=== PATIENT | female | born 1995 | race Two or more races ===

== ENCOUNTER 2019-09-05 19:52 | Emergency (ER) | payer SELFPAY ==
[~2019-09-05] VITALS: Ht 162.6 cm; Wt 77.1 kg
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
--- NOTE | 2019-09-05 20:19 | NUR ---
PT BROUGHT TO XRAY.
--- NOTE | 2019-09-05 20:33 | NUR ---
PT BROUGHT BACK FROM XRAY.
[2019-09-05 21:01] VITALS: BP 124/86
--- NOTE | 2019-09-05 21:01 | NUR ---
Patient discharged to home in stable condition. Written and verbal after care instructions given. Patient verbalizes understanding of instruction. PT ambulatory with a steady gait.
== END 2019-09-05 21:02 | disposition home or self-care (01) ==
LOC: ER 19:57
DX: S20.212A Contusion of left front wall of thorax, initial encounter (principal); S40.212A Abrasion of left shoulder, initial encounter; V49.59XA Passenger injured in collision with other motor vehicles in traffic accident, initial encounter; Y93.89 Activity, other specified; Y92.488 Other paved roadways as the place of occurrence of the external cause; Y99.8 Other external cause status
CPT/HCPCS: 71045-TC; 71120-TC

== ENCOUNTER 2023-09-14 14:51 | Emergency (ER) | payer MEDICAID ==
[~2023-09-14] VITALS: Ht 162.6 cm; Wt 73.5 kg
[2023-09-14 15:00] VITALS: BP 128/70; TEMP 98.2; O2SAT 100
[2023-09-14] MEDS ORDERED: PRED50TA PO (15:25)
[2023-09-14] MEDS ORDERED: CLIN30GE2 TP (15:25)
[2023-09-14] MEDS ORDERED: TRAM-351 PO (15:25)
[2023-09-14] MEDS ORDERED: ACETAMINOPHEN ES 500 MG TABLET ONE (15:45)
[2023-09-14] MEDS ORDERED: IBUPROFEN 400 MG TABLET ONE (15:45)
[2023-09-14] MEDS ORDERED: ACETAMINOPHEN ES 500 MG TABLET PO ONE (16:00)
[2023-09-14] MEDS ORDERED: IBUPROFEN 400 MG TABLET PO ONE (16:00)
== END 2023-09-14 16:07 | disposition home or self-care (01) ==
LOC: ER 14:51
DX: L73.2 Hidradenitis suppurativa (principal); Z79.899 Other long term (current) drug therapy; Z60.2 Problems related to living alone

== ENCOUNTER 2023-09-23 08:40 | Emergency (ER) | payer MEDICAID ==
[~2023-09-23] VITALS: Ht 162.6 cm; Wt 75.5 kg
[~2023-09-23 08:40] MED LIST: CLIN30GE2 TP; PRED50TA PO; TRAM-351 PO
[2023-09-23 09:15] VITALS: BP 133/84; TEMP 98.6
[2023-09-23] MEDS ORDERED: TRAM50TA2 PO (10:00)
[2023-09-23] MEDS ORDERED: SULF1TAB48 PO (10:00)
[2023-09-23] MEDS ORDERED: IBUPROFEN 600 MG TABLET PO ONE (10:00)
[2023-09-23] MEDS ORDERED: SULFAMETH/TRIMETH 800/160 MG 1 UDTAB TABLET PO ONE (10:00)
[2023-09-23] MEDS ORDERED: IBUPROFEN 600 MG TABLET ONE (10:01)
[2023-09-23] MEDS ORDERED: SULFAMETH/TRIMETH 800/160 MG 1 UDTAB TABLET ONE (10:02)
[2023-09-23 11:10] VITALS: O2SAT 98
== END 2023-09-23 11:10 | disposition home or self-care (01) ==
LOC: ER 08:42
DX: L02.412 Cutaneous abscess of left axilla (principal); Z79.899 Other long term (current) drug therapy; Z60.2 Problems related to living alone
CPT/HCPCS: 99283; 10060; A6403; A6407

== ENCOUNTER 2023-09-25 12:17 | Emergency (ER) | payer MEDICAID ==
[~2023-09-25] VITALS: Ht 162.6 cm; Wt 72.6 kg
[~2023-09-25 12:17] MED LIST changes: +SULF1TAB48 PO; +TRAM50TA2 PO
[2023-09-25 12:24] VITALS: BP 114/67; TEMP 97.9
[2023-09-25 13:13] VITALS: O2SAT 96
== END 2023-09-25 13:16 | disposition home or self-care (01) ==
LOC: ER 12:21
DX: L02.412 Cutaneous abscess of left axilla (principal); Z60.2 Problems related to living alone; Z79.899 Other long term (current) drug therapy